=== PATIENT | female | born 1945 | race Caucasian/White ===

== ENCOUNTER → 2017-12-16 | Outpatient (CLI) | payer MEDICARE | END | disposition home or self-care (01) | LOC: RAH 13:06 | PROVIDERS: ATTEND Family Medicine | DX: Z12.31 Encounter for screening mammogram for malignant neoplasm of breast (principal) | CPT/HCPCS: 77067 ==

== ENCOUNTER → 2018-11-14 | Outpatient (CLI) | payer MEDICARE | END | disposition home or self-care (01) | LOC: RAH 08:47 | PROVIDERS: ATTEND Internal Medicine Gastroenterology | DX: K21.9 Gastro-esophageal reflux disease without esophagitis (principal) | CPT/HCPCS: 74240 ==

== ENCOUNTER → 2018-12-17 | Outpatient (CLI) | payer MEDICARE | END | disposition home or self-care (01) | LOC: RAH 15:38 | PROVIDERS: ATTEND Family Medicine | DX: Z12.31 Encounter for screening mammogram for malignant neoplasm of breast (principal) | CPT/HCPCS: 77067 ==

== ENCOUNTER → 2019-12-01 | Outpatient (CLI) | payer MEDICARE | END | disposition home or self-care (01) | LOC: RAH 12:28 | PROVIDERS: ATTEND Family Medicine | DX: M79.604 Pain in right leg (principal) | CPT/HCPCS: 93970 ==

== ENCOUNTER 2020-08-02 05:50 | Day surgery (SDC) | payer MEDICARE ==
[2020-07-28 10:01] LABS: POTASSIUM 3.8 mmol/L (3.5-5.1)
[2020-08-01 10:14] VITALS: BP 173/83
[2020-08-02] VITALS (19 sets, daily range): BP systolic 132–183; BP diastolic 58–95
[~2020-08-02] VITALS: Ht 167.6 cm; Wt 83.8 kg
[~2020-08-02 05:50] MED LIST: AMIO200T6 PO; APIX5TAB PO; CALC600T15 PO; FIBER PO; FIBER TABLET PO; L.AC1CAP6 PO; LEVO5TAB29 PO; MONT10TA21 PO; MULT-1203 PO; PANT40TA54 PO; POLY17PO4 PO; SENN-107 PO
[2020-08-02] MEDS: CEFAZOLIN SODIUM 1 GM VIAL IVP SCH ×2 (06:00→08:00)
[2020-08-02] MEDS ORDERED: LACTATED RINGERS 1000ML 1,000 ML IV ONE (06:24)
[2020-08-02] MEDS ORDERED: LIDOCAINE 1%-EPI 1:100,000 20 ML VIAL IJ ONE ×2 (06:45→08:05)
[2020-08-02] MEDS ORDERED: MIDAZOLAM HCL 1 MG/ML 2ML VIAL ONE (07:17)
[2020-08-02] MEDS ORDERED: FENTANYL CITRATE PF 50 MCG/1 ML 2ML VIAL ONE ×3 (07:18→08:20)
== END 2020-08-02 10:30 | disposition home or self-care (01) ==
LOC: DAH 05:50
PROVIDERS: ATTEND Neurological Surgery
DX: M80.88XA Other osteoporosis with current pathological fracture, vertebra(e), initial encounter for fracture (principal); I10 Essential (primary) hypertension; I49.9 Cardiac arrhythmia, unspecified; Z79.01 Long term (current) use of anticoagulants; Z79.899 Other long term (current) drug therapy; Z20.828 Contact with and (suspected) exposure to other viral communicable diseases
CPT/HCPCS: 22511; 36415; 72110; 80048; A4215 ×2; A4221; A4222; A4223; A4663; A6260; C1776; C9803; J0690; J2250; J3010 ×3; J3490; J7120; U0003

== ENCOUNTER → 2020-08-08 | Outpatient (CLI) | payer MEDICARE | END | disposition home or self-care (01) | LOC: RAH 13:48 | PROVIDERS: ATTEND Neurological Surgery | DX: S32.029A Unspecified fracture of second lumbar vertebra, initial encounter for closed fracture (principal); M54.16 Radiculopathy, lumbar region; G95.29 Other cord compression; X58.XXXA Exposure to other specified factors, initial encounter; Y93.89 Activity, other specified; Y92.89 Other specified places as the place of occurrence of the external cause; Y99.8 Other external cause status | CPT/HCPCS: 72131 ==

== ENCOUNTER → 2021-05-24 | Outpatient (CLI) | payer MEDICARE ==
[~2021-05-24] MED LIST changes: +CALC-1125 PO; -CALC600T15 PO
== END | disposition home or self-care (01) ==
LOC: LAB 11:13
PROVIDERS: ATTEND Neurological Surgery
DX: M54.16 Radiculopathy, lumbar region (principal)
CPT/HCPCS: 36415; 82565; 84520

== ENCOUNTER → 2021-05-26 | Outpatient (CLI) | payer MEDICARE ==
[~2021-05-26] MED LIST changes: +GADOTERATE MEGLUMINE 10 MMOL/20 ML VIAL IV ONE
== END | disposition home or self-care (01) ==
LOC: RAH 07:40
PROVIDERS: ATTEND Neurological Surgery
DX: M51.16 Intervertebral disc disorders with radiculopathy, lumbar region (principal); M47.26 Other spondylosis with radiculopathy, lumbar region; M48.061 Spinal stenosis, lumbar region without neurogenic claudication
CPT/HCPCS: 72158; A9575